=== PATIENT | female | born 1990 | race Caucasian/White ===

== ENCOUNTER 2019-01-31 18:26 | Emergency (ER) | payer MEDICAID ==
[2019-01-31] MEDS ORDERED: ONDANSETRON HCL INJ/PF 4 MG/2 ML SDV IV ONE (18:42)
[2019-01-31] MEDS ORDERED: NORMAL SALINE 1000 ML 1,000 ML IV ONE (18:42)
--- NOTE | 2019-01-31 18:44 | ER Document Report ---
ED Medical Screen (RME) - General Chief Complaint: Flank Pain Stated Complaint: FLANK PAIN Time Seen by Provider: 01/31/19 18:34 Notes: Patient is a 28-year-old female presents to the emergency department with a chief complaint of flank pain. Patient states she has had a urinary symptoms for 1 week to include burning, frequency and blood in the urine. Patient reports that she felt like her symptoms were getting better but then today they got extremely worse. Patient reports nausea with 4 episodes of vomiting today. Patient reports chills and hot flashes but denies fever. Patient denies diarrhea. Patient reports her last menstrual cycle was January 19. Patient states she has been taking Tylenol and ibuprofen as needed for pain and did take Azo briefly over the past week with some relief. Patient reports she has a history of kidney infections. TRAVEL OUTSIDE OF THE [place] IN LAST 30 DAYS: No - Related Data Allergies/Adverse Reactions: No Known Allergies Allergy (Unverified 01/31/19 18:31) Physical Exam - Vital signs Vitals: Temp Pulse Resp BP Pulse Ox 98.1 F 107 H 16 158/93 H 98 01/31/19 18:32 01/31/19 18:32 01/31/19 18:32 01/31/19 18:32 01/31/19 18:32 - Back Notes: Mild CVA tenderness bilaterally. Course - Re-evaluation Re-evalutation: 01/31/19 18:43 I have greeted and performed a rapid initial assessment of this patient. A comprehensive ED assessment and evaluation of the patient, analysis of test results and completion of the medical decision making process will be conducted by additional ED providers. - Vital Signs Vital signs: Temp Pulse Resp BP Pulse Ox 98.1 F 107 H 16 158/93 H 98 01/31/19 18:32 01/31/19 18:32 01/31/19 18:32 01/31/19 18:32 01/31/19 18:32
--- NOTE | 2019-01-31 19:05 | ER Document Report ---
ED General - General Chief Complaint: Flank Pain Stated Complaint: FLANK PAIN Time Seen by Provider: 01/31/19 18:34 Notes: 28-year-old female presents emergency department with a chief complaint of bilateral flank pain and urinary symptoms. Her symptoms started last week with urinary symptoms, and then on Wednesday she started having right flank pain and this morning she had bilateral flank pain with nausea and vomiting. She states she vomited about 4 times. She denies any fever. She has history of urinary tract infections in the past, but has not had one recently. She has had an appendectomy and a . Her last menstrual cycle was 19 January. Denies any history of renal stones. Patient denies any vaginal discharge. TRAVEL OUTSIDE OF THE [place] IN LAST 30 DAYS: No - Related Data Allergies/Adverse Reactions: No Known Allergies Allergy (Unverified 01/31/19 18:31) Past Medical History - Social History Smoking Status: Never Smoker Family History: Reviewed & Not Pertinent Patient has suicidal ideation: No Patient has homicidal ideation: No Renal/ Medical History: Denies: Hx Peritoneal Dialysis Review of Systems - Review of Systems Notes: REVIEW OF SYSTEMS: CONSTITUTIONAL : Denies recent illness. Denies recent unintentional weight loss. Denies fever, chills, or sweats. EENT: Denies eye, ear, throat, or mouth pain, discharge, or symptoms. Denies nasal or sinus congestion. CARDIOVASCULAR: Denies chest pain. RESPIRATORY: Denies shortness of breath, cough, congestion, difficulty breathing, or wheezing. GASTROINTESTINAL: See HPI GENITOURINARY: See HPI MUSCULOSKELETAL: Denies neck and back pain. Denies joint pain or swelling. SKIN: Denies rash, itchiness, or lesions HEMATOLOGIC : Denies easy bruising or bleeding. LYMPHATIC: Denies swollen, painful, enlarged glands. NEUROLOGICAL: Denies no numbness or tingling denies weakness. Denies headache. Denies altered mental status. Denies alteration in speech. PSYCHIATRIC: Denies stress, anxiety, alteration in sleep patterns, or depression. All other systems reviewed and negative. Physical Exam - Vital signs Vitals: Temp Pulse Resp BP Pulse Ox 98.1 F 107 H 16 158/93 H 98 01/31/19 18:32 01/31/19 18:32 01/31/19 18:32 01/31/19 18:32 01/31/19 18:32 - Notes Notes: PHYSICAL EXAMINATION: GENERAL: Appears well, healthy, well-nourished, no acute distress. HEAD: Normocephalic, atraumatic. EYES: PERRL, conjunctiva normal, all extraocular movements intact, sclera nonicteric ENT: Moist mucous membranes. NECK: Supple, no noticeable swelling, redness, rash. Normal range of motion. LUNGS: Equal breath sounds bilaterally and clear to auscultation. No wheezes rales or rhonchi. CARDIOVASCULAR: S1-S2, regular rate, regular rhythm. Radial pulses 2+, normal. ABDOMEN: Normoactive bowel sounds. Soft, nontender, no guarding, no rebound tenderness, and no masses palpated. EXTREMITIES: Normal strength and range of motion, no pitting or edema. No cyanosis. NEUROLOGICAL: Moves all extremities upon command. Strength 5/5 in all extremities. PSYCH: Normal mood, normal affect. SKIN: Warm, dry. No rash, lesions, ulcerations noted. Normal skin turgor. BACK: CVA tenderness bilaterally. Course - Re-evaluation Re-evalutation: 01/31/19 22:13 The patient's renal ultrasound is unremarkable at this time. No hydronephrosis. She does have blood in her urine. At this time, since the patient is having symptoms, I will place her on Keflex. Urine culture has been sent. Follow-up precautions were given. Verbal discharge instructions were given to the patient. They verbalized understanding. They are stable for discharge. - Vital Signs Vital signs: Temp Pulse Resp BP Pulse Ox 98.1 F 84 18 136/76 H 100 01/31/19 18:32 01/31/19 22:25 01/31/19 22:25 01/31/19 22:25 01/31/19 22:25 - Laboratory Result Diagrams: 01/31/19 19:03 01/31/19 19:03 Laboratory results interpreted by me: 01/31/19 18:45 Urine Ketones TRACE H Urine Blood MODERATE H Discharge - Discharge Clinical Impression: Hematuria Qualifiers: Hematuria type: unspecified type Qualified Code(s): R31.9 - Hematuria, unspecified Condition: Stable Disposition: HOME, SELF-CARE Additional Instructions: Your urine shows findings consistent with a possible urinary tract infection. Your urine is being sent for culture. Please take all the antibiotics as directed even if your symptoms have improved. Please follow-up with your primary care physician as needed. Return to emergency room if you develop fever >101F, persistent vomiting, become lethargic, have severe pain in your sides, or any other symptoms that are concerning to you. Prescriptions: Cephalexin [Keflex] 500 mg PO BID #14 capsule
[2019-01-31 19:18] LABS: ABSOLUTE LYMPHOCYTES (AUTO) 1.7 10^3/uL (0.5-4.7); ABSOLUTE MONOCYTES (AUTO) 0.4 10^3/uL (0.1-1.4); ABSOLUTE NEUT (AUTO) 3.1 10^3/uL (1.7-8.2); BASOPHILS % (AUTO) 0.2 % (0-2); EOSINOPHILS % (AUTO) 0.9 % (0-6); HEMATOCRIT 37.4 % (36.0-47.0); HEMOGLOBIN 12.9 g/dL (12.0-15.5); MEAN CORPUSCULAR HEMOGLOBIN 30.4 pg (27.0-33.4); MEAN CORPUSCULAR HGB CONC 34.5 g/dL (32.0-36.0); MEAN CORPUSCULAR VOLUME 88 fl (80-97); MONOCYTES % (AUTO) 7.1 % (3-13); PLATELET COUNT 234 10^3/uL (150-450); RED BLOOD COUNT 4.24 10^6/uL (3.72-5.28); RED CELL DISTRIBUTION WIDTH 12.6 % (11.5-14.0); SEGMENTED NEUTROPHILS % (AUTO) 59.8 % (42-78); TOTAL CELLS COUNTED % (AUTO) 100 %; WHITE BLOOD COUNT 5.3 10^3/uL (4.0-10.5)
[2019-01-31 19:21] LABS: APPEARANCE,URINE SLIGHTLY-CLOUDY; BILIRUBIN,URINE NEGATIVE (NEGATIVE); COLOR,URINE YELLOW; GLUCOSE, URINE NEGATIVE (NEGATIVE); KETONES,URINE TRACE mg/dL (NEGATIVE); LEUKOCYTE ESTERASE,URINE NEGATIVE (NEGATIVE); NITRITE,URINE NEGATIVE (NEGATIVE); PROTEIN,URINE NEGATIVE (NEGATIVE); URINE SPECIFIC GRAVITY 1.025; UROBILINOGEN,URINE NEGATIVE mg/dL (<2.0)
[2019-01-31 19:37] LABS: ALKALINE PHOSPHATASE 59 U/L (38-126); ANION GAP 10 (5-19); ASPARTATE AMINO TRANSFERASE 24 U/L (14-36); BILIRUBIN,DIRECT 0.3 mg/dL (0.0-0.4); BILIRUBIN,TOTAL 0.7 mg/dL (0.2-1.3); BLOOD UREA NITROGEN 15 mg/dL (7-20); CALCIUM 10.2 mg/dL (8.4-10.2); CARBON DIOXIDE 27 mmol/L (22-30); CHLORIDE 104 mmol/L (98-107); GLUCOSE 93 mg/dL (75-110); POTASSIUM 4.3 mmol/L (3.6-5.0); TOTAL PROTEIN 8.1 g/dL (6.3-8.2)
--- NOTE | 2019-01-31 22:09 | RADIOLOGY REPORT (SQ) ---
EXAM DESCRIPTION: US RETROPERITONEUM LIMITED COMPLETED DATE/TME: 01/31/2019 19:01 CLINICAL HISTORY: 28 years, Female, flank pain COMPARISON: None. TECHNIQUE: Limited retroperitoneal ultrasound LIMITATIONS: None. FINDINGS: The right kidney measures 11.2 x 5.0 x 4.1 cm, the left 12.1 x 4.6 x 5.4 cm. No renal calculus, mass, or hydronephrosis. No perinephric fluid collection. Cortical medullary differentiation is preserved bilaterally. Urinary bladder is grossly unremarkable IMPRESSION: Unremarkable exam copyright 2010 [employer]- All Rights Reserved
[2019-01-31] MEDS ORDERED: CEPHALEXIN 500 MG CAPSULE PO ONE (22:14)
[2019-01-31] MEDS ORDERED: ONDANSETRON ODT 4 MG TAB (6 TAB/ER DISP) PO PRN (22:14)
[2019-01-31 22:25] VITALS: BP 136/76
== END 2019-01-31 22:26 | disposition home or self-care (01) ==
LOC: ER 18:26
DX: R31.9 Hematuria, unspecified (principal); R10.9 Unspecified abdominal pain; R11.2 Nausea with vomiting, unspecified; Z87.440 Personal history of urinary (tract) infections; Z90.49 Acquired absence of other specified parts of digestive tract
CPT/HCPCS: 36415; 85025; 81025; 80053; 81001; 76775; J2405; J7030; 87086; 96361; 96374; 99284